=== PATIENT | female | born 1960 ===

== ENCOUNTER → 2022-01-07 | Outpatient (CLI) | payer SELFPAY | END | disposition home or self-care (01) | LOC: LAB SHORT 12:15 | DX: Z48.817 Encounter for surgical aftercare following surgery on the skin and subcutaneous tissue (principal); L08.9 Local infection of the skin and subcutaneous tissue, unspecified; L81.0 Postinflammatory hyperpigmentation | CPT/HCPCS: 87070; 87077; 87147; 87186; 87205 ==